=== PATIENT | male | born 1970 | race Hispanic/Latino ===

== ENCOUNTER 2020-01-24 12:00 | Emergency (ER) | payer MEDICAID ==
[2020-01-24 12:11] VITALS: BP 137/95
--- NOTE | 2020-01-24 12:11 | Emergency Department Report ---
Blank Doc - Documentation Documentation: 49-year-old male that presents with abdominal pain and distention. Had a colo noscopy 2 weeks ago. This initial assessment/diagnostic orders/clinical plan/treatment(s) is/are subject to change based on patient's health status, clinical progression and re- assessment by fellow clinical providers in the ED. Further treatment and workup at subsequent clinical providers discretion. Patient/guardians urged not to elope from the ED as their condition may be serious if not clinically assessed and managed. Initial orders include: 1- Patient sent to [facility] for further evaluation and treatment 2- labs 3- UA
[2020-01-24 13:30] LABS: Basophils # (Auto) 0.1 K/mm3 (0.0-0.1); Basophils % (Auto) 1.1 % (0.0-1.8); Eosinophils # (Auto) 0.1 K/mm3 (0.0-0.4); Eosinophils % (Auto) 0.5 % (0.0-4.3); Hematocrit 53.2 % (35.5-45.6); Hemoglobin 17.9 gm/dl (11.8-15.2); Lymphocytes # (Auto) 2.9 K/mm3 (1.2-5.4); Lymphocytes % (Auto) 25.1 % (13.4-35.0); Mean Corpuscular HGB Conc 34 % (32-34); Mean Corpuscular Volume 94 fl (84-94); Monocytes # (Auto) 0.8 K/mm3 (0.0-0.8); Monocytes % (Auto) 7.3 % (0.0-7.3); Platelet Count 277 K/mm3 (140-440); Red Blood Count 5.65 M/mm3 (3.65-5.03); Red Cell Distribution Width 14.3 % (13.2-15.2)
[2020-01-24 13:44] LABS: Bilirubin,Urine NEG (Negative); Blood,Urine NEG (Negative); Color,Urine Yellow (Yellow); Mucus,Urine 2+ /HPF; Urobilinogen,Urine < 2.0 mg/dL (<2.0)
[2020-01-24 13:45] LABS: WBC,Urine < 1.0 /HPF (0.0-6.0)
[2020-01-24 13:51] LABS: Alanine Aminotransferase 27 units/L (7-56); Albumin 4.5 g/dL (3.9-5); BUN/Creatinine Ratio 13; Blood Urea Nitrogen 12 mg/dL (9-20); Calcium 9.4 mg/dL (8.4-10.2); Hemolysis Index 20
[2020-01-24] MEDS ORDERED: ONDANSETRON 4 MG/2 ML INJ IV ONE (14:52)
[2020-01-24] MEDS ORDERED: SODIUM CHLORIDE 0.9% 1000 ML 1,000 ML IV ONE (14:52)
[2020-01-24] MEDS ORDERED: MORPHINE 4 MG/1 ML INJ IV ONE (14:52)
--- NOTE | 2020-01-24 15:01 | Emergency Department Report ---
ED Abdominal Pain HPI - General Chief Complaint: Abdominal Pain Stated Complaint: ABD PAIN Time Seen by Provider: 01/24/20 12:10 Source: patient Mode of arrival: Ambulatory Limitations: No Limitations - History of Present Illness Initial Comments: Patient is 49 years old male with history of depression. Patient presented to the ER complaining of diffuse abdominal pain and left testicular pain for the last 10 days. Patient stated that he had a colonoscopy just few days before his symptoms started. Patient denied any recent trauma or injury. He also denied any nausea or vomiting or diarrhea. Patient also denied any fever or chills. No dysuria or frequency or hematuria. MD Complaint: abdominal pain -: days(s) (10) Location: diffuse - Related Data Home Medications Medication Instructions Recorded Confirmed Last Taken Citalopram Hydrobromide [celeXA] 40 mg PO DAILY 03/04/15 03/04/15 Unknown Diazepam [Valium] 10 mg PO Q8H PRN 03/04/15 03/04/[address] [DepaKOTE DR] 250 mg PO BID 03/04/15 03/04/15 Unknown raNITIdine HCL [Ranitidine 150mg 150 mg PO BID 03/04/15 03/04/15 Unknown Cap] Allergies Allergy/AdvReac Type Severity Reaction Status Date / Time diphenhydramine Allergy Unknown Verified 01/24/20 12:02 [From [facility]] ED Review of Systems ROS: Stated complaint: ABD PAIN Other details as noted in HPI Comment: All other systems reviewed and negative Constitutional: denies: chills, fever Respiratory: denies: cough, shortness of breath, SOB with exertion Cardiovascular: denies: chest pain, palpitations Gastrointestinal: abdominal pain. denies: nausea, vomiting, diarrhea, constipation, hematemesis, melena, hematochezia Genitourinary: testicular pain. denies: urgency, dysuria, frequency, hematuria, discharge, testicular mass Musculoskeletal: denies: back pain Neurological: denies: headache, weakness, numbness, paresthesias, confusion, abnormal gait ED Past Medical Hx - Past Medical History Hx Psychiatric Treatment: Yes (bipolar, anxiety) Additional medical history: STOMACH - Social History Smoking Status: Never Smoker Substance Use Type: None - Medications Home Medications: Home Medications Medication Instructions Recorded Confirmed Last Taken Type Citalopram Hydrobromide [celeXA] 40 mg PO DAILY 03/04/15 03/04/15 Unknown History Diazepam [Valium] 10 mg PO Q8H PRN 03/04/15 03/04/[address] [DepaKOTE DR] 250 mg PO BID 03/04/15 03/04/15 Unknown History raNITIdine HCL [Ranitidine 150mg 150 mg PO BID 03/04/15 03/04/15 Unknown History Cap] ED Physical Exam - General Limitations: No Limitations General appearance: alert, in no apparent distress - Head Head exam: Present: atraumatic, normocephalic, normal inspection - Eye Eye exam: Present: normal appearance - ENT ENT exam: Present: normal exam, normal orophraynx, mucous membranes moist - Neck Neck exam: Present: normal inspection, full ROM. Absent: tenderness, meningismus, lymphadenopathy, thyromegaly - Respiratory Respiratory exam: Present: normal lung sounds bilaterally - Cardiovascular Cardiovascular Exam: Present: regular rate, normal rhythm, normal heart sounds - GI/Abdominal GI/Abdominal exam: Present: soft, normal bowel sounds. Absent: distended, tenderness, guarding, rebound, rigid, organomegaly, mass, bruit, pulsatile mass, hernia - exam: Present: normal inspection, testicular tenderness, scrotal swelling. Absent: urethral discharge External exam: Present: normal external exam. Absent: erythema, swelling, lesions, lacerations, ecchymosis, bleeding - Extremities Exam Extremities exam: Present: normal inspection, full ROM, normal capillary refill. Absent: pedal edema, calf tenderness - Back Exam Back exam: Present: normal inspection, full ROM. Absent: CVA tenderness (R), CVA tenderness (L) - Neurological Exam Neurological exam: Present: alert, oriented X3, CN II-XII intact - Psychiatric Psychiatric exam: Present: normal mood. Absent: depressed, agitated - Skin Skin exam: Present: warm, intact, normal color ED Course Vital Signs 01/24/20 01/24/20 01/24/20 12:06 12:09 15:10 Temperature 97.9 F 97.9 F Pulse Rate 75 71 Respiratory 20 20 17 Rate Blood Pressure 137/95 137/95 O2 Sat by Pulse 97 97 Oximetry ED Medical Decision Making - Lab Data Result diagrams: 01/24/20 12:55 01/24/20 12:55 - Radiology Data Radiology results: report reviewed - Medical Decision Making Patient is 49 years old male with history of depression. Patient presented to the ER complaining of diffuse abdominal pain and left testicular pain for the last 10 days. Patient stated that he had a colonoscopy just few days before his symptoms started. Patient denied any recent trauma or injury. He also denied any nausea or vomiting or diarrhea. Patient also denied any fever or chills. No dysuria or frequency or hematuria. Patient received morphine, Toradol and normal saline. Patient stated that he is feeling much better. Labs reviewed and is unremarkable. CT abdomen and pelvis with IV contrast is negative for acute finding. Ultrasound showed. Patient given prescription for ciprofloxacin and advised to follow-up with urologist in the next 2 to 3 days and to return to the ER if he develop any new symptoms. Critical care attestation.: If time is entered above; I have spent that time in minutes in the direct care of this critically ill patient, excluding procedure time. ED Disposition Clinical Impression: Abdominal pain, Scrotal swelling Disposition: - TO HOME OR SELFCARE Is pt being admited?: No Condition: Stable Instructions: Abdominal Pain (ED), Testicle Pain (ED) Referrals: CLAUDIA GUIDO MD [Staff Physician] - 3-5 Days
--- NOTE | 2020-01-24 15:55 | Cat Scan Report ---
CT ABDOMEN AND PELVIS CONTRAST HISTORY: Abdominal pain. Colonoscopy 10 days ago. COMPARISON: 03/04/2015 TECHNIQUE: Routine abdominal and pelvic CT exam performed following intravenous contrast administrat ion.. 100 cc of Omnipaque 300 was injected intravenously without incident. Consent was obtained prior to the administration of contrast. All CT scans at this location are performed using CT dose reducti on for ALARA by means of automated exposure control. FINDINGS: CT ABDOMEN: Lung Bases: No significant abnormality. Liver: Normal. Biliary: Normal gallbladder and bile ducts. Spleen: Normal. Pancreas: Normal. Adrenals: A 1.2 cm right adrenal benign adenoma. Normal left adrenal gland. Kidneys: Normal kidneys. The renal collecting systems and ureters are nondilated. Lymphatics: No lymphadenopathy. Vasculature: No significant abnormality. Bowel/Peritoneum: No significant abnormality. No free air. No free fluid. Normal appendix. CT PELVIC: : No significant abnormality. Lymphatics: No lymphadenopathy. Osseous Structures: No aggressive appearing osseous lesions. Additional Findings: None IMPRESSION: 1. No significant abnormality. Signer Name: Reagan Aguilar MD Signed: 01/24/2020 3:50 PM Workstation Name: [id number]
[2020-01-24] MEDS ORDERED: KETOROLAC 30 MG/1 ML INJ IV ONE (16:37)
--- NOTE | 2020-01-24 18:29 | Ultrasound Report ---
SCROTAL ULTRASOUND WITH DOPPLER HISTORY: Left testicular swelling and pain. COMPARISON: CT abdomen pelvis same day TECHNIQUE: Grayscale, color and spectral Doppler images were obtained of the scrotum. FINDINGS: RIGHT: Right testicle: A few punctate calcifications are seen in the right testicle. No mass. Right testicular size: 4.6 x 2.3 x 3.1 cm. Right epididymis: Small epididymal head cyst measuring up to 4 mm. LEFT: Left testicle: No significant abnormality. No mass. Left testicular size: 3.9 x 2.7 x 3.6 cm. Left epididymis: Two epididymal cysts, the larger measuring up to 7 mm. Additional findings: There are moderate left and small right complex hydroceles with internal debris. IMPRESSION: 1. Moderate left and small right complex hydroceles with internal debris. 2. Small bilateral epididymal head cysts. Signer Name: Gila Levi MD Signed: 01/24/2020 6:25 PM Workstation Name: [id number]
== END 2020-01-24 18:17 | disposition home or self-care (01) ==
LOC: ED 12:00
DX: R10.84 Generalized abdominal pain (principal); N50.89 Other specified disorders of the male genital organs; F41.9 Anxiety disorder, unspecified; F31.9 Bipolar disorder, unspecified; Z88.8 Allergy status to other drugs, medicaments and biological substances; Z79.899 Other long term (current) drug therapy
CPT/HCPCS: 36415; 74177; 80053; 81001; 83690; 85025; 93975; 96374; 96375; 99284; J1885; J2270; J2405; J7030; Q9967